=== PATIENT | female | born 1990 | race Caucasian/White ===

== ENCOUNTER 2024-01-12 09:24 | Emergency (ER) | payer OTHER ==
[2024-01-12] MEDS ORDERED: Acetaminophen 500 MG TAB ONE (10:09)
[2024-01-12] MEDS ORDERED: Amoxicillin/Potassium Clav 875 MG TAB ONE (10:09)
[2024-01-12] MEDS ORDERED: Boostrix 0.5 ML (Tdap) VIAL (>/=7 yrs of age) ONE (10:09)
[2024-01-12] MEDS ORDERED: Bacitracin 1 PK ONE (10:23)
== END 2024-01-12 10:30 | disposition home or self-care (01) ==
LOC: MADERS 09:24
DX: S61.452A Open bite of left hand, initial encounter (principal); Z23 Encounter for immunization; W54.0XXA Bitten by dog, initial encounter; Y93.89 Activity, other specified
CPT/HCPCS: 90471; 90715